=== PATIENT | female | born 1960 | race African-American/Black ===

== ENCOUNTER 2019-10-09 22:20 | Inpatient (IN) | payer MEDICAID ==
[~2019-10-09] VITALS: Ht 154.9 cm; Wt 54.2 kg
[2019-10-09 23:03] LABS: BASOPHILS % 0.6 % (0.0-2.0); EOSINOPHILS % 0.3 % (0.0-5.0); HEMATOCRIT. 41.9 % (36.0-48.0); HEMOGLOBIN. 14.4 g/dL (12.0-16.0); LYMPHOCYTES % 33.2 % (20.0-50.0); MEAN CORPUSCULAR HEMOGLOBIN 33.3 pg (28.0-32.0); MEAN CORPUSCULAR VOLUME 96.8 fL (81.0-99.0); MEAN PLATELET VOLUME 8.1 fl (7.4-10.4); MONOCYTES % 6.6 % (2.0-8.0); NEUTROPHILS % 59.3 % (40.0-76.0); PLATELET 196 x1000/uL (130-400); RED BLOOD CELL COUNT 4.33 mill/uL (4.2-5.4)
[2019-10-09 23:08] LABS: CHLORIDE 102 mEq/L (98-107)
[2019-10-09 23:41] LABS: CLARITY URINE CLEAR (CLEAR); COLOR URINE YELLOW (YELLOW); KETONES URINE NEGATIVE (NEGATIVE); LEUKOCYTE ESTERASE URINE TRACE (NEGATIVE); NITRITE URINE NEGATIVE (NEGATIVE); OCCULT BLOOD URINE NEGATIVE (NEGATIVE); PROTEIN URINE 1+ (NEGATIVE); SPECIFIC GRAVITY URINE 1.009 (1.005-1.030); UROBILINOGEN URINE 0.2 E.U./dL (0.2-1.0)
[2019-10-10 03:10] VITALS: BP 123/76
[2019-10-10] MEDS ORDERED: DEXTROSE 50% WATER 50ML SYRINGE IV PRN (06:45)
[2019-10-10] MEDS ORDERED: NITROGLYCERIN 0.4MG TABLET SL SL PRN (06:45)
[2019-10-10] MEDS: INSULIN LISPRO 100 UNITS/ML SUBCUT SCH ×2 (06:46→12:15)
[2019-10-10] MEDS: BLOOD SUGAR DIAGNOSTIC STRIP TEST SCH ×2 (06:46→11:45)
[2019-10-10] MEDS ORDERED: POTASSIUM CHLORIDE 20MEQ/PACKET PO SCH (07:00)
[2019-10-10 08:00] VITALS: BP 118/77
[2019-10-10] MEDS ORDERED: PNEUMOCOCCAL 23-VAL P-SAC VAC 0.5 ML IM ONE (08:00)
[2019-10-10] MEDS: ENOXAPARIN 40MG/0.4ML SYR SUBCUT SCH (08:10)
[2019-10-10] MEDS: CLOPIDOGREL 75MG TABLET PO SCH (08:10)
[2019-10-10 08:37] LABS: BASOPHILS % 0.6 % (0.0-2.0); EOSINOPHILS % 1.4 % (0.0-5.0); HEMATOCRIT. 38.1 % (36.0-48.0); HEMOGLOBIN. 13.1 g/dL (12.0-16.0); LYMPHOCYTES % 46.4 % (20.0-50.0); MEAN CORPUSCULAR HEMOGLOBIN 33.3 pg (28.0-32.0); MEAN PLATELET VOLUME 8.2 fl (7.4-10.4); MONOCYTES % 8.1 % (2.0-8.0); NEUTROPHILS % 43.5 % (40.0-76.0); PLATELET 191 x1000/uL (130-400); RED BLOOD CELL COUNT 3.93 mill/uL (4.2-5.4); RED CELL DISTRIBUTION WIDTH 14.2 % (11.6-14.6)
[2019-10-10 08:39] LABS: CHLORIDE 104 mEq/L (98-107)
[2019-10-10 08:47] LABS: LDL CHOLESTEROL 126 mg/dL (5-100)
[2019-10-10 08:49] LABS: HDL CHOLESTEROL 52 mg/dL (40-59)
[2019-10-10] MEDS ORDERED: METOPROLOL TARTRATE 25MG TABLET PO SCH (09:00)
[2019-10-10 12:00] VITALS: BP 105/58
[2019-10-10] MEDS ORDERED: HYDROCODONE/ACETAMINOPHEN 5/325MG TABLET PO NR (13:45)
[2019-10-10] MEDS ORDERED: IPRATROPIUM BROMIDE (0.02%) 0.5MG/2.5ML NEB HHN PRN (14:45)
[2019-10-10 16:00] VITALS: BP 139/78
[2019-10-10] MEDS: MORPHINE SULFATE 2 MG/ML CPJ (NOT FOR IM USE) IV PRN (17:57)
[2019-10-10 20:00] VITALS: BP 107/65
[2019-10-10 20:08] LABS: *BARBITURATES SCREEN URINE NEGATIVE (NEGATIVE); *BENZODIAZEPINES SCREEN URINE NEGATIVE (NEGATIVE); *COCAINE SCREEN URINE NEGATIVE (NEGATIVE)
[2019-10-10 20:09] LABS: *AMPHETAMINES SCREEN URINE NEGATIVE (NEGATIVE); CANNABINOID URINE SCREEN NEGATIVE (NEGATIVE); METHADONE URINE SCREEN NEGATIVE (NEGATIVE); OPIATES URINE SCREEN NEGATIVE (NEGATIVE); PHENCYCLIDINE URINE SCREEN NEGATIVE (NEGATIVE)
[2019-10-10] MEDS ORDERED: ATORVASTATIN CALCIUM 20MG TABLET PO SCH (21:00)
[2019-10-10] MEDS: GUAIFENESIN 600MG ER TABLET PO SCH (21:05)
[2019-10-10] MEDS: DILTIAZEM HCL 60MG TABLET PO SCH (21:19)
[2019-10-11 00:21] VITALS: BP 118/63
[2019-10-11] MEDS: MORPHINE SULFATE 2 MG/ML CPJ (NOT FOR IM USE) IV PRN ×2 (01:28→14:44)
[2019-10-11 04:00] VITALS: BP 97/56
[2019-10-11] MEDS: DILTIAZEM HCL 60MG TABLET PO SCH (06:00)
[2019-10-11 07:03] LABS: BASOPHILS % 0.3 % (0.0-2.0); EOSINOPHILS % 1.4 % (0.0-5.0); HEMATOCRIT. 35.9 % (36.0-48.0); HEMOGLOBIN. 12.1 g/dL (12.0-16.0); LYMPHOCYTES % 27.9 % (20.0-50.0); MEAN CORPUSCULAR VOLUME 97.9 fL (81.0-99.0); MEAN PLATELET VOLUME 8.8 fl (7.4-10.4); MONOCYTES % 9.7 % (2.0-8.0); NEUTROPHILS % 60.7 % (40.0-76.0); PLATELET 173 x1000/uL (130-400); RED BLOOD CELL COUNT 3.67 mill/uL (4.2-5.4); RED CELL DISTRIBUTION WIDTH 14.2 % (11.6-14.6)
[2019-10-11 07:22] LABS: CHLORIDE 107 mEq/L (98-107)
[2019-10-11 08:00] VITALS: BP 126/69
[2019-10-11] MEDS: GUAIFENESIN 600MG ER TABLET PO SCH (09:40)
[2019-10-11] MEDS: CLOPIDOGREL 75MG TABLET PO SCH (09:40)
[2019-10-11] MEDS: ENOXAPARIN 40MG/0.4ML SYR SUBCUT SCH (09:42)
[2019-10-11] MEDS ORDERED: DILTIAZEM HCL 120MG CAPSULE CD 24HR PO SCH (11:00)
[2019-10-11 12:00] VITALS: BP 119/67
[2019-10-11 16:00] VITALS: BP 113/66
[2019-10-11 16:22] VITALS: BP 113/66
== END 2019-10-11 17:10 | DRG 201 ==
LOC: ER 22:20 → 5WST 10-10 00:52 → EDBEDREQDT 10-10 01:17 → EDBEDREQ 10-10 01:17 → EDBEDREQTM 10-10 01:17 → ENRESERV 10-10 02:23
PROVIDERS: ADMIT Internal Medicine; ATTEND Internal Medicine
DX: I47.1 Supraventricular tachycardia (principal); E87.2 Acidosis; E11.9 Type 2 diabetes mellitus without complications; E78.00 Pure hypercholesterolemia, unspecified; E78.5 Hyperlipidemia, unspecified; E87.6 Hypokalemia; F10.10 Alcohol abuse, uncomplicated; F17.210 Nicotine dependence, cigarettes, uncomplicated; G90.8 Other disorders of autonomic nervous system; I10 Essential (primary) hypertension; J44.9 Chronic obstructive pulmonary disease, unspecified; Z87.01 Personal history of pneumonia (recurrent); Z88.6 Allergy status to analgesic agent; Z71.6 Tobacco abuse counseling
CPT/HCPCS: 36415; 71045; 80048; 80053; 80061; 80305; 81003; 82962; 83036; 83605; 83880; 84484; 85025; 90732; 93005; 93306; 97162; 99285; J1650; J2270